=== PATIENT | female | born 1930 | race Caucasian/White ===

== ENCOUNTER 2020-12-01 10:37 | Inpatient (IN) | payer MEDICARE, BC ==
[~2020-12-01] VITALS: Ht 157.5 cm; Wt 49.0 kg
[2020-12-01] MEDS ORDERED: ELIQUIS (10:48)
[2020-12-01] MEDS ORDERED: XANAX (10:48)
[2020-12-01] MEDS ORDERED: LEVOTHYROXINE (10:48)
[2020-12-01] MEDS ORDERED: NITROGLYCERIN OINT 1 GM PACKET TP ONE ×2 (11:15→11:20)
[2020-12-01 11:20] LABS: BASOPHILS # (AUTO) 0.1 K/uL (0.0-8.0); BASOPHILS % (AUTO) 0.9 % (0.0-2.0); EOSINOPHILS # (AUTO) 0.1 K/uL (0.0-0.7); EOSINOPHILS % (AUTO) 1.1 % (0.0-7.0); LYMPHOCYTES # (AUTO) 0.8 K/uL (20.0-40.0); LYMPHOCYTES % (AUTO) 9.7 % (20.5-51.5); MEAN CORPUSCULAR HEMOGLOBIN 31.3 uug (24.7-32.8); MEAN CORPUSCULAR HGB CONC 34 g/dL (32.3-35.6); MEAN CORPUSCULAR VOLUME 91.6 fL (75.5-95.3); MONOCYTES # (AUTO) 0.5 K/uL (2.0-10.0); MONOCYTES % (AUTO) 6.3 % (0.0-11.0); NEUTROPHILS # (AUTO) 6.7 K/uL (1.8-8.9); PLATELET COUNT (AUTO) 254 K/uL (179-408); RED BLOOD CELL COUNT(AUTO) 4.15 MIL/uL (3.63-4.92); WHITE BLOOD COUNT (AUTO) 8.2 K/uL (3.8-11.8)
--- NOTE | 2020-12-01 11:27 | NUR ---
PT IS IN ROOM #2B. DR REYES EVALIUATED THE PT.
[2020-12-01 11:36] LABS: BILIRUBIN,DIRECT 0.2 mg/dL (0.0-0.2); BILIRUBIN,TOTAL 0.8 mg/dL (0.2-1.0); TOTAL PROTEIN, SERUM 7.6 g/dL (6.4-8.2)
[2020-12-01] MEDS ORDERED: METOPROLOL SUCCINATE XL 25 MG TAB.SR.24H PO ONE ×2 (12:15→12:26)
[2020-12-01] MEDS ORDERED: ASPIRIN 81 MG TAB.CHEW PO ONE (12:45)
[2020-12-01] MEDS ORDERED: ASPIRIN 81 MG TAB.CHEW ONE (12:48)
[2020-12-01] MEDS ORDERED: ONDANSETRON 4 MG/2 ML VIAL IV PRN (15:30)
[2020-12-01] MEDS ORDERED: ALPRAZOLAM 0.5 MG TABLET PO PRN (15:30)
[2020-12-01] MEDS ORDERED: ACETAMINOPHEN 325 MG TABLET PO PRN (15:30)
[2020-12-01] MEDS ORDERED: MORPHINE SULFATE 2 MG/1 ML DISP.SYRIN IV PRN (15:30)
[2020-12-01] MEDS: APIXABAN 5 MG TABLET PO SCH (17:00)
[2020-12-01] MEDS: MECLIZINE HCL 25 MG TABLET PO SCH ×2 (17:17→22:16)
[2020-12-01] MEDS ORDERED: ALPRAZOLAM 0.5 MG TABLET ONE (17:24)
[2020-12-01] MEDS ORDERED: ONDANSETRON 4 MG/2 ML VIAL ONE (17:25)
[2020-12-01] MEDS ORDERED: MECLIZINE HCL 25 MG TABLET ONE (17:25)
[2020-12-01] MEDS ORDERED: PANTOPRAZOLE SODIUM 40 MG TABLET.DR PO ONE (17:25)
[2020-12-01] MEDS ORDERED: DOCUSATE SODIUM 100 MG CAPSULE PO SCH (21:00)
[2020-12-01] MEDS ORDERED: DOCUSATE SODIUM 250 MG CAPSULE PO SCH (21:00)
--- NOTE | 2020-12-01 21:20 | NUR ---
Report given to Lizz, patient going to room 330
--- NOTE | 2020-12-01 21:40 | NUR ---
Pt. admitted to tele unit , under care of Dr. Cazares Belongs List completed and all belongings sent with patient
--- NOTE | 2020-12-01 21:44 | NUR ---
Pt came from ER c/o 06/08 anterior chest pain. Patient is AOX3-4, denies any acute distress. V/S stable on room air. PIV on VANDANA is intact. Safety measures in place. Call light within reach. Will continue with the plan of care.
[2020-12-01 22:41] VITALS: BP 116/56
[2020-12-02 00:56] VITALS: BP 131/68
[2020-12-02 04:57] VITALS: BP 114/56
[2020-12-02] MEDS: MECLIZINE HCL 25 MG TABLET PO SCH ×2 (06:24→14:05)
[2020-12-02] MEDS ORDERED: PANTOPRAZOLE SODIUM 40 MG TABLET.DR PO SCH (07:00)
--- NOTE | 2020-12-02 07:10 | NUR ---
Pt remained stable throughout the shift. Denies any acute distress or pain at this time. V/S stable on room air. NSR on tele monitor. Comfort care and needs attended. Safety measures in place. Call light within reach. Will endorse to oncoming nurse accordingly.
[2020-12-02 08:31] LABS: BILIRUBIN,TOTAL 0.7 mg/dL (0.2-1.0); CREATININE 0.9 mg/dL (0.6-1.3); MAGNESIUM 2.2 mg/dL (1.8-2.4); PHOSPHOROUS 3.6 mg/dL (2.5-4.9); POTASSIUM 4.1 mmol/L (3.5-5.1); TOTAL PROTEIN, SERUM 7.1 g/dL (6.4-8.2)
[2020-12-02 09:26] LABS: BASOPHILS # (AUTO) 0.1 K/uL (0.0-8.0); EOSINOPHILS # (AUTO) 0.2 K/uL (0.0-0.7); EOSINOPHILS % (AUTO) 2.3 % (0.0-7.0); HEMATOCRIT 37.3 % (31.2-41.9); HEMOGLOBIN 12.7 g/dL (10.9-14.3); LYMPHOCYTES % (AUTO) 15.3 % (20.5-51.5); MEAN CORPUSCULAR HEMOGLOBIN 31.8 uug (24.7-32.8); MEAN CORPUSCULAR HGB CONC 34 g/dL (32.3-35.6); MEAN CORPUSCULAR VOLUME 93.4 fL (75.5-95.3); MONOCYTES # (AUTO) 0.5 K/uL (2.0-10.0); MONOCYTES % (AUTO) 7.3 % (0.0-11.0); NEUTROPHILS % (AUTO) 74.1 % (38.5-71.5); PLATELET COUNT (AUTO) 250 K/uL (179-408); WHITE BLOOD COUNT (AUTO) 6.7 K/uL (3.8-11.8)
[2020-12-02 10:32] LABS: THYROID STIMULATING HORMONE 5.867 mIU/mL (0.358-3.740)
[2020-12-02 12:05] VITALS: BP 123/53
[2020-12-02] MEDS ORDERED: PANT40TA2 PO (12:53)
[2020-12-02] MEDS: APIXABAN 5 MG TABLET PO SCH (13:59)
[2020-12-02 16:05] VITALS: BP 105/53
== END 2020-12-02 16:30 | disposition home or self-care (01) | DRG 392 ==
LOC: ER 10:37 → TRANSITION 14:01 → TELE3 21:28
PROVIDERS: ADMIT Internal Medicine; ATTEND Internal Medicine
DX: K22.4 Dyskinesia of esophagus (principal); I48.20 Chronic atrial fibrillation, unspecified; E22.2 Syndrome of inappropriate secretion of antidiuretic hormone; I48.92 Unspecified atrial flutter; F41.9 Anxiety disorder, unspecified; Z88.2 Allergy status to sulfonamides; I35.1 Nonrheumatic aortic (valve) insufficiency; E03.9 Hypothyroidism, unspecified; R07.89 Other chest pain; K20.90 Esophagitis, unspecified without bleeding; Z20.828 Contact with and (suspected) exposure to other viral communicable diseases
CPT/HCPCS: 36415; 70030-TC; 71045; 83735; 84100; 84443; 85025; 93005; 93307; A4663; G0378; J2405; J7030; J8597